=== PATIENT | male | born 1985 | race Caucasian/White ===

== ENCOUNTER 2021-08-29 21:14 | Emergency (ER) | payer OTHER ==
[~2021-08-29] VITALS: Ht 182.9 cm; Wt 59.0 kg
[2021-08-30] MEDS ORDERED: KETOROLAC 60MG/2ML VIAL IM ONE (01:30)
[2021-08-30 02:25] VITALS: BP 128/88
== END 2021-08-30 02:26 | disposition home or self-care (01) ==
LOC: ER 21:14
DX: R07.89 Other chest pain (principal); K21.9 Gastro-esophageal reflux disease without esophagitis; F12.10 Cannabis abuse, uncomplicated
CPT/HCPCS: 71045; 96372; 99283; J1885